=== PATIENT | female | born 1950 | race Caucasian/White ===

== ENCOUNTER 2023-08-26 11:06 | Outpatient (CLI) | payer OTHER | END 2023-08-26 11:10 | disposition home or self-care (01) | LOC: RAD 11:06 | PROVIDERS: ATTEND Orthopaedic Surgery | DX: M54.6 Pain in thoracic spine (principal); M25.551 Pain in right hip ==

== ENCOUNTER 2023-11-23 12:09 | Inpatient (IN) | payer OTHER ==
[~2023-11-23] VITALS: Ht 163.8 cm; Wt 52.2 kg
[2023-11-23] MEDS ORDERED: COZAAR25 MG PO (12:15)
[2023-11-23] MEDS ORDERED: EVISTA60 MG PO (12:16)
[2023-11-30] MEDS ORDERED: BUPIVACAINE HCL/PF 0.25% 30ML VIAL InF ONE (12:15)
[2023-11-30] MEDS ORDERED: LIDOCAINE HCL 1%/EPINEPHRINE 20ML VIAL IJ ONE (12:15)
[2023-11-30] MEDS ORDERED: VANCOMYCIN HCL 1,000 MG VIAL IR ONE (12:15)
[2023-11-30] MEDS ORDERED: KETOROLAC TROMETHAMINE 60 MG VIAL IM ONE (12:15)
[2023-11-30] MEDS ORDERED: CEFOXITIN SODIUM 2,000 MG VIAL IV ONE (12:15)
[2023-11-30] MEDS ORDERED: TRANEXAMIC ACID 100MG/1ML (1000MG) AMPUL IV ONE ×2 (13:45)
[2023-11-30] MEDS ORDERED: XARELTO10 M1 (14:06)
[2023-11-30] MEDS ORDERED: ONDANSETRON HCL 2 MG/ML VIAL IV PRN (15:30)
[2023-11-30] MEDS ORDERED: TRAMADOL HCL 50 MG TABLET PO PRN (15:30)
[2023-11-30] MEDS ORDERED: PROMETHAZINE HCL 50 MG/ML AMPUL IM PRN (15:30)
[2023-11-30] MEDS ORDERED: ONDANSETRON 4 MG TAB.RAPDIS PO PRN (15:30)
[2023-11-30] MEDS ORDERED: ENALAPRILAT DIHYDRATE 1.25 MG/ML VIAL IV PRN (15:30)
[2023-11-30] MEDS ORDERED: MEPERIDINE HCL/PF 50 MG/ML VIAL IM PRN (15:30)
[2023-11-30] MEDS ORDERED: SODIUM CHLORIDE 0.45 % 1,000 ML IV SCH (15:30)
[2023-11-30] MEDS ORDERED: ACETAMINOPHEN 325 MG TABLET PO SCH (17:00)
[2023-11-30] MEDS ORDERED: PANTOPRAZOLE SODIUM 40 MG TABLET.DR PO SCH (17:00)
[2023-11-30] MEDS ORDERED: CEFAZOLIN SODIUM 1,000 MG VIAL IV SCH (17:00)
[2023-11-30] MEDS ORDERED: CELECOXIB 200 MG CAPSULE PO SCH (17:00)
[2023-11-30] MEDS ORDERED: KETOROLAC TROMETHAMINE 10 MG TABLET PO SCH (21:00)
[2023-12-01 06:56] LABS: HEMATOCRIT 28.6 % (36.0-45.00); MEAN CELL VOLUME 93.1 fL (80.00-100.00); MEAN CORPUSCULAR HGB CONC 34.4 g/dl (32.0-36.0); PLATELET COUNT 186 K/uL (150-450); RED BLOOD COUNT 3.07 M/uL (4.00-6.00); RED CELL DISTRIBUTION WIDTH 13.6 % (11.5-14.5)
[2023-12-01 07:04] LABS: HEMOGLOBIN 9.8 g/dL (12.0-15.00); MEAN CORPUSCULAR HEMOGLOBIN 31.9 pg (27.00-32.0)
[2023-12-01] MEDS ORDERED: LOSARTAN POTASSIUM 25 MG TABLET PO SCH (09:00)
[2023-12-01] MEDS ORDERED: RIVAROXABAN 10 MG TAB PO SCH (09:00)
[2023-12-01] MEDS ORDERED: IRON FUM,PS/FOLIC/BCOMP,C NO.9 1 CAP CAPSULE PO SCH (12:00)
[2023-12-02 06:30] LABS: HEMATOCRIT 24.6 % (36.0-45.00); MEAN CELL VOLUME 93.3 fL (80.00-100.00); MEAN CORPUSCULAR HGB CONC 34.7 g/dl (32.0-36.0); PLATELET COUNT 151 K/uL (150-450); RED BLOOD COUNT 2.63 M/uL (4.00-6.00); RED CELL DISTRIBUTION WIDTH 13.2 % (11.5-14.5)
[2023-12-02 06:41] LABS: HEMOGLOBIN 8.5 g/dL (12.0-15.00); MEAN CORPUSCULAR HEMOGLOBIN 32.3 pg (27.00-32.0)
[2023-12-02] MEDS ORDERED: SENNA/DOCUSATE SODIUM 1 TAB TABLET PO SCH (09:00)
== END 2023-12-02 17:05 | disposition home or self-care (01) | DRG 470 ==
LOC: O/R 11-30 07:24 → SURH 11-30 10:40 → OB/GYN 11-30 15:02 → SURH 11-30 19:01 → OB/GYN 11-30 19:19
PROVIDERS: ADMIT Orthopaedic Surgery; ATTEND Orthopaedic Surgery
PROC: 0KNN0ZZ Release Right Hip Muscle, Open Approach (ICD-10-PCS; 2023-11-30)
PROC: 0SRC0JZ Replacement of Right Knee Joint with Synthetic Substitute, Open Approach (ICD-10-PCS; principal; 2023-11-30 12:30)
DX: M16.11 Unilateral primary osteoarthritis, right hip (principal); D62 Acute posthemorrhagic anemia; I10 Essential (primary) hypertension

== ENCOUNTER → 2024-10-10 06:52 | Outpatient (CLI) | payer OTHER ==
[~2024-10-10 06:52] MED LIST: COZAAR25 MG PO; EVISTA60 MG PO; XARELTO10 M1
[2024-10-10 08:18] LABS: ALBUMIN 3.8 gm/dL (3.4-5.0); BILIRUBIN TOTAL 0.53 mg/dL (0.3-1.2); CALCIUM 9.3 mg/dL (8.5-10.1); CREATININE SERUM 0.52 mg/dL (0.55-1.02); GFR 114.96; GLOBULINA 2.8 G/DL (2.4-3.5); POTASSIUM 3.75 mEq/L (3.5-5.1); TOTAL PROTEIN 6.6 gm/dL (6.4-8.2)
== END | disposition home or self-care (01) ==
LOC: LAB 06:52
DX: E55.9 Vitamin D deficiency, unspecified (principal); I72.2 Aneurysm of renal artery

== ENCOUNTER → 2024-10-10 10:19 | Outpatient (CLI) | payer OTHER | END | disposition home or self-care (01) | LOC: NUCLEAR 10:19 | DX: M81.0 Age-related osteoporosis without current pathological fracture (principal) ==